=== PATIENT | female | born 1980 | race Asian ===

== ENCOUNTER 2016-05-22 07:50 | Day surgery (SDC) | payer OTHER ==
[~2016-05-22] VITALS: Ht 157.5 cm; Wt 84.9 kg
[~2016-05-22 07:50] MED LIST: 0.9% Sodium Chloride 1,000 ML IV PRN; 0.9% Sodium Chloride 1,000 ML IV SCH; ALBU2.5V15 IH; BECL8.7A6 INHALATION; BECL8.7H NS; CETI10TA18 PO; CHOL5000 PO; FOLI20CA PO; GABA-502 PO; HYDR25TA4 PO; MULT-36 PO; OMEP40CA36 PO; RANI150T11 PO; Sodium Chloride LOK Flush 10 mL Syringe IV PRN; fentaNYL-PF 50 mCg/mL 2 mL Inj IVPUSH PRN
[2016-05-22 08:48] VITALS: BP 126/86; PULSE 77; RESP 16; O2SAT 100
--- NOTE | 2016-05-22 09:23 | PCM.ENDEGD ---
EGD Date of Service: May 22, 2016 Physician Luis Alfredo Epps MD Pre Procedure Diagnosis: Dysphagia Post Procedure Dx & Findings: Normal upper GI Procedure Esophagogastroduodenoscopy PROCEDURE IN DETAIL: The patient was placed in left lateral decubitus position. Bite block was placed. Scope lubricated, placed in posterior pharynx, passed through the cricopharyngeus and esophagus, slowly advanced the entire length of the gastric pouch, pylorus was identified, scope passed through the pylorus and descending portion of duodenum, withdrawn in the antrum, retroflexed upon itself for view of fundus and cardia. Scope was then withdrawn through the oropharynx. Esophagus was normal with normal-appearing Z line at 40 cm. The ulcer mass erosion noted. Stomach showed normal mucosa with normal rugae folds. No mass ulcer erosion noted. Retroflexion was done. Stomach was easily inflatable and deflatable using her. Cardia fundus body antrum and pylorus were visualized. Scope further advanced to distal duodenum. Duodenum appeared normal with normal villous structures with normal appearing folds. Impression Normal upper GI Recommendation Video swallow study has not been done. We will try to make sure patient receives to call from speech pathology. Follow up in GI clinic. Presedation Assessment Risks and Benefits Informed consent was obtained from the patient after all risks and benefits including but not limited to drug reaction, infection, pain, bleeding, perforation, as well as alternatives were discussed. Patient monitoring Continuous pulse oximetry, cardiac monitoring, blood pressure monitoring, IV access, and oxygen at 2L per nasal cannula. Periprocedural Fentanyl: Fentanyl 100mcg Incrementally Midazolam: Midazolam 5mg Incrementally Complications There were no periprocedural complications identified. Post Procedure Plan Post Procedure Recommendations 1. Restrict activities today. 2. Resume normal activities in the morning. 3. Resume medications. 4. GERD behavioral modification: - Avoid fatty, acidic, spicy, large meals - Do not lie down after meals - Do not eat or drink anything for at least 2 1/2 hours before going to bed at night - Discontinue tobacco and alcohol - Decrease or avoid caffeine - Avoid chocolate and mints - Decrease weight - Avoid aspirin and non steroidal anti-inflammatory agents (NSAID) such as Aleve, Advil, Mobic, Naproxen, Ibuprofen, etc 5. Add proton pump inhibitor. Take 30 minutes before 1st meal of the day. 6. Patient informed of normal post procedure side effects as bloating, drowsiness, blood streaking in the stool 7. If gastric biopsy reveal H.pylori, continue with appropriate treatment 8. If small bowel biopsy reveals celiac, continue with appropriate treatment 9. Please don't hesitate to call me with any questions Luis Alfredo Epps MD May 22, 2016 09:23
[2016-05-22 09:27] VITALS: BP 115/83; PULSE 76; RESP 12; O2SAT 96
[2016-05-22 09:39] VITALS: BP 112/86; PULSE 92; RESP 14; O2SAT 100
[2016-05-22 09:49] VITALS: BP 109/74; PULSE 76; RESP 14; O2SAT 98
[2016-05-22 09:57] VITALS: BP 112/82; PULSE 78; RESP 14; O2SAT 99
== END 2016-05-22 23:59 | disposition home or self-care (01) ==
LOC: END 07:50
PROVIDERS: ATTEND Internal Medicine
DX: K22.10 Ulcer of esophagus without bleeding (principal); R74.8 Abnormal levels of other serum enzymes; N30.10 Interstitial cystitis (chronic) without hematuria; K58.9 Irritable bowel syndrome, unspecified; M79.7 Fibromyalgia; F41.9 Anxiety disorder, unspecified; Z79.51 Long term (current) use of inhaled steroids
CPT/HCPCS: 43235; G0500; J2250; J3010; J7030